=== PATIENT | female | born 2000 | race Caucasian/White ===

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

== ENCOUNTER → 2020-07-01 | Outpatient (REF) | payer OTHER | LOC: M SFHCPLAZ 09:24 | PROVIDERS: ATTEND Family Medicine | DX: R03.0 Elevated blood-pressure reading, without diagnosis of hypertension (principal); Z13.220 Encounter for screening for lipoid disorders; E66.9 Obesity, unspecified ==

== ENCOUNTER 2020-07-23 12:25 | Emergency (ER) | payer OTHER ==
[~2020-07-23] VITALS: Ht 167.6 cm; Wt 111.5 kg
[2020-07-23 12:25] VITALS: BP 137/89
[2020-07-23 14:57] VITALS: O2SAT 99
[2020-07-23 15:26] LABS: BASO % 0.4 % (0.0-1.0); HEMATOCRIT 47.3 % (36.0-47.0); HEMOGLOBIN 15.5 g/dl (12.0-15.5); LYMPH # 1.1 10^3/uL (1.5-5.0); LYMPH % 46.5 % (24.0-44.0); MEAN CORPUSCULAR HEMOGLOBIN 28.2 pg (27.0-33.0); MEAN CORPUSCULAR HGB CONC 32.8 g/dl (32.0-36.5); MONO # 0.3 10^3/uL (0.0-0.8); MONO % 13.2 % (0.0-5.0); NEUTROPHILS % 39.5 % (36.0-66.0); PLATELET COUNT, AUTOMATED 216 10^3/uL (150-450); WHITE BLOOD COUNT 2.3 10^3/uL (4.0-10.0)
[2020-07-23] MEDS ORDERED: NS 1,000 ML IV ONE (15:30)
[2020-07-23 15:39] LABS: INR 0.96; PARTIAL THROMBOPLASTIN TIME 29.7 SECONDS (24.2-38.5)
[2020-07-23 15:40] LABS: HCG, SERUM QUALITATIVE NEGATIVE (NEGATIVE)
[2020-07-23 15:41] LABS: ALT/SGPT 126 U/L (12-78); BILIRUBIN,DIRECT 0.2 MG/DL (0.0-0.2); BILIRUBIN,TOTAL 0.4 MG/DL (0.2-1.0); BLOOD UREA NITROGEN 10 MG/DL (7-18); CALCIUM LEVEL 8.7 MG/DL (8.5-10.1); CARBON DIOXIDE LEVEL 29 MEQ/L (21-32); CHLORIDE LEVEL 107 MEQ/L (98-107); CREATININE FOR GFR 0.87 MG/DL (0.55-1.30); GLUCOSE, FASTING 120 MG/DL (70-100); LIPASE 145 U/L (73-393); POTASSIUM SERUM 3.6 MEQ/L (3.5-5.1); SODIUM LEVEL 141 MEQ/L (136-145); TOTAL PROTEIN 7.7 GM/DL (6.4-8.2)
[2020-07-23 15:46] LABS: NEUTROPHILS # 0.9 10^3/uL (1.5-8.5)
== END 2020-07-23 17:12 | disposition home or self-care (01) ==
LOC: M ED 12:25
DX: U07.1 COVID-19 (principal); Z20.822 Contact with and (suspected) exposure to COVID-19

== ENCOUNTER → 2020-08-03 | Outpatient (REF) | payer OTHER ==
[2020-08-03 13:48] LABS: HEMATOCRIT 45.9 % (36.0-47.0); HEMOGLOBIN 15.3 g/dl (12.0-15.5); MEAN CORPUSCULAR HEMOGLOBIN 28.7 pg (27.0-33.0); MEAN CORPUSCULAR HGB CONC 33.3 g/dl (32.0-36.5); PLATELET COUNT, AUTOMATED 508 10^3/uL (150-450); RED BLOOD COUNT 5.34 10^6/uL (4.00-5.40); WHITE BLOOD COUNT 5.6 10^3/uL (4.0-10.0)
[2020-08-03 14:21] LABS: ALBUMIN 3.7 GM/DL (3.2-5.2); ALT/SGPT 143 U/L (12-78); BILIRUBIN,TOTAL 0.8 MG/DL (0.2-1.0); BLOOD UREA NITROGEN 8 MG/DL (7-18); CALCIUM LEVEL 9.6 MG/DL (8.5-10.1); CARBON DIOXIDE LEVEL 29 MEQ/L (21-32); CHLORIDE LEVEL 107 MEQ/L (98-107); CHOLESTEROL LEVEL 143 MG/DL (<200); CHOLESTEROL RISK RATIO 3.487 (<5); CREATININE FOR GFR 0.82 MG/DL (0.55-1.30); FREE T4 1.14 NG/DL (0.78-1.33); GLUCOSE, FASTING 93 MG/DL (70-100); HDL CHOLESTEROL 41 MG/DL (>40); LDL CHOLESTEROL 71 MG/DL (<100); NON-HDL-C 102 MG/DL; POTASSIUM SERUM 3.9 MEQ/L (3.5-5.1); SODIUM LEVEL 141 MEQ/L (136-145); THYROID STIMULATING HORMONE 0.412 uIU/ML (0.463-3.98); TOTAL PROTEIN 7.6 GM/DL (6.4-8.2); TRIGLYCERIDES LEVEL 156 MG/DL (<150)
== END ==
LOC: M PLALAB 12:24
PROVIDERS: ATTEND Student in an Organized Health Care Education/Training Program
DX: R03.0 Elevated blood-pressure reading, without diagnosis of hypertension (principal); Z13.220 Encounter for screening for lipoid disorders; E66.9 Obesity, unspecified

== ENCOUNTER → 2020-09-14 | Outpatient (REF) | payer OTHER ==
[2020-09-14 14:45] LABS: ALBUMIN 4.1 GM/DL (3.2-5.2); ALT/SGPT 51 U/L (12-78); BILIRUBIN,TOTAL 0.3 MG/DL (0.2-1.0); BLOOD UREA NITROGEN 8 MG/DL (7-18); CALCIUM LEVEL 9.6 MG/DL (8.5-10.1); CARBON DIOXIDE LEVEL 25 MEQ/L (21-32); CHLORIDE LEVEL 107 MEQ/L (98-107); GLUCOSE, FASTING 111 MG/DL (70-100); POTASSIUM SERUM 3.8 MEQ/L (3.5-5.1); SODIUM LEVEL 141 MEQ/L (136-145)
== END ==
LOC: M SFHCPLAZ 11:15
PROVIDERS: ATTEND Family Medicine
DX: R74.8 Abnormal levels of other serum enzymes (principal)

== ENCOUNTER → 2022-01-11 | Outpatient (REF) | payer OTHER ==
[2022-01-11 14:07] LABS: ALBUMIN 3.8 GM/DL (3.2-5.2); ALT/SGPT 36 U/L (12-78); BILIRUBIN,TOTAL 1.1 MG/DL (0.2-1.0); BLOOD UREA NITROGEN 12 MG/DL (7-18); CALCIUM LEVEL 8.9 MG/DL (8.5-10.1); CARBON DIOXIDE LEVEL 25 MEQ/L (21-32); CHLORIDE LEVEL 107 MEQ/L (98-107); CREATININE FOR GFR 0.68 MG/DL (0.55-1.30); FREE T4 0.93 NG/DL (0.76-1.46); GLOMERULAR FILTRATION RATE > 60.0 (>60); GLUCOSE, FASTING 79 MG/DL (70-100); POTASSIUM SERUM 4.1 MEQ/L (3.5-5.1); SODIUM LEVEL 138 MEQ/L (136-145); THYROID STIMULATING HORMONE 0.842 uIU/ML (0.358-3.740); TOTAL PROTEIN 7.3 GM/DL (6.4-8.2)
== END ==
LOC: M SFHCADAM 08:59
PROVIDERS: ATTEND Physician Assistant
DX: R03.0 Elevated blood-pressure reading, without diagnosis of hypertension (principal); R79.89 Other specified abnormal findings of blood chemistry

== ENCOUNTER → 2022-05-18 | Outpatient (REF) | payer OTHER | LOC: M SFHCADAM 16:24 | PROVIDERS: ATTEND Physician Assistant | DX: R09.81 Nasal congestion (principal) ==

== ENCOUNTER → 2023-11-20 | Outpatient (REF) | payer OTHER | LOC: M SFHCADAM 12:13 | PROVIDERS: ATTEND Physician Assistant | DX: J11.1 Influenza due to unidentified influenza virus with other respiratory manifestations (principal) ==

== ENCOUNTER → 2024-04-09 | Outpatient (REF) | payer OTHER ==
[2024-04-09 13:41] LABS: BLOOD UREA NITROGEN 10 MG/DL (9-23); CALCIUM LEVEL 9.6 MG/DL (8.5-10.1); CARBON DIOXIDE LEVEL 27 MMOL/L (20-31); CHLORIDE LEVEL 107 MMOL/L (98-107); CREATININE FOR GFR 0.68 MG/DL (0.55-1.30); GLOMERULAR FILTRATION RATE > 60.0 (>60); GLUCOSE, FASTING 124 MG/DL (60-100); POTASSIUM SERUM 3.9 MMOL/L (3.5-5.1); SODIUM LEVEL 139 MMOL/L (136-145)
== END ==
LOC: M SFHCADAM 09:41
PROVIDERS: ATTEND Physician Assistant
DX: I10 Essential (primary) hypertension (principal)

== ENCOUNTER → 2024-10-18 | Outpatient (REF) | payer OTHER ==
[2024-10-18 17:52] LABS: ALBUMIN 4.1 G/DL (3.2-5.2); ALKALINE PHOSPHATASE 74 U/L (35-104); ALT/SGPT 72 U/L (7.0-40); AST/SGOT 37 U/L (<34); BILIRUBIN,TOTAL 0.7 MG/DL (0.3-1.2); BLOOD UREA NITROGEN 12 MG/DL (9-23); CALCIUM LEVEL 9.6 MG/DL (8.5-10.1); CARBON DIOXIDE LEVEL 27 MMOL/L (20-31); CHLORIDE LEVEL 105 MMOL/L (98-107); CHOLESTEROL LEVEL 133 MG/DL (<200); CHOLESTEROL RISK RATIO 3.03 (<5); CREATININE FOR GFR 0.67 MG/DL (0.55-1.30); FREE T4 1.15 NG/DL (0.89-1.76); GLOMERULAR FILTRATION RATE > 60.0 (>60); GLUCOSE, FASTING 81 MG/DL (60-100); HDL CHOLESTEROL 43.8 MG/DL (>40); LDL CHOLESTEROL 66.6 MG/DL (<100); NON-HDL-C 89.2 MG/DL; POTASSIUM SERUM 3.8 MMOL/L (3.5-5.1); SODIUM LEVEL 140 MMOL/L (136-145); TOTAL PROTEIN 7.8 G/DL (5.7-8.2); TRIGLYCERIDES LEVEL 113 MG/DL (<150)
[2024-10-18 17:53] LABS: THYROID STIMULATING HORMONE 1.084 uIU/ML (0.55-4.78)
[2024-10-18 18:20] LABS: HEMOGLOBIN A1c 4.8 % (4.0-6.0)
== END ==
LOC: M SFHCADAM 11:40
PROVIDERS: ATTEND Physician Assistant
DX: E66.01 Morbid (severe) obesity due to excess calories (principal); Z68.41 Body mass index [BMI] 40.0-44.9, adult; E66.813 Obesity, class 3; I10 Essential (primary) hypertension; R55 Syncope and collapse; Z23 Encounter for immunization; Z13.220 Encounter for screening for lipoid disorders; Z13.1 Encounter for screening for diabetes mellitus

== ENCOUNTER → 2024-11-28 | Outpatient (REF) | payer OTHER ==
[2024-11-28 18:08] LABS: Trichomonas vaginalis (AMP) NOT DETECTED (NEGATIVE)
[2024-11-28 18:33] LABS: GC DNA AMPLIFICATION NEGATIVE (NEGATIVE)
[2024-11-28 19:03] LABS: ALBUMIN 3.8 G/DL (3.2-5.2); ALKALINE PHOSPHATASE 62 U/L (35-104); ALT/SGPT 31 U/L (7.0-40); AST/SGOT 23 U/L (<34); BILIRUBIN,TOTAL 0.4 MG/DL (0.3-1.2); BLOOD UREA NITROGEN 13 MG/DL (9-23); CALCIUM LEVEL 9.5 MG/DL (8.5-10.1); CARBON DIOXIDE LEVEL 23 MMOL/L (20-31); CHLORIDE LEVEL 107 MMOL/L (98-107); CREATININE FOR GFR 0.67 MG/DL (0.55-1.30); GLOMERULAR FILTRATION RATE > 90.0 (>60); GLUCOSE, FASTING 113 MG/DL (60-100); POTASSIUM SERUM 4.2 MMOL/L (3.5-5.1); SODIUM LEVEL 141 MMOL/L (136-145); TOTAL PROTEIN 7.6 G/DL (5.7-8.2)
[2024-11-28 19:06] LABS: HEPATITIS B SURFACE ANTIBODY NEGATIVE (POSITIVE)
[2024-11-28 19:17] LABS: HEPATITIS B SURFACE ANTIGEN NEGATIVE (NEGATIVE)
[2024-11-28 19:32] LABS: HIV 1&2 SCREEN NEGATIVE (NEGATIVE)
[2024-11-28 19:39] LABS: HEPATITIS C VIRUS ABY INDEX 0.05 INDEX (<0.8)
[2024-12-03 12:07] LABS: HPV APTIMA Not Detected (Not Detected)
== END ==
LOC: M SFHCADAM 11:09
PROVIDERS: ATTEND Physician Assistant
DX: Z91.89 Other specified personal risk factors, not elsewhere classified (principal); Z12.4 Encounter for screening for malignant neoplasm of cervix

== ENCOUNTER 2025-06-27 11:23 | Emergency (ER) | payer OTHER ==
[~2025-06-27] VITALS: Ht 167.6 cm; Wt 115.5 kg
[2025-06-27] MEDS ORDERED: CYCL-707 PO (13:49)
[2025-06-27 14:00] VITALS: BP 152/83; TEMP 97.8; O2SAT 100
== END 2025-06-27 14:02 | disposition home or self-care (01) ==
LOC: M ED 11:23
DX: S13.4XXA Sprain of ligaments of cervical spine, initial encounter (principal); Y92.9 Unspecified place or not applicable; Y93.9 Activity, unspecified; Y99.9 Unspecified external cause status; V49.50XA Passenger injured in collision with unspecified motor vehicles in traffic accident, initial encounter; Z79.899 Other long term (current) drug therapy